=== PATIENT | female | born 1990 | race Caucasian/White ===

== ENCOUNTER → 2017-12-26 | Outpatient (CLI) | payer BC ==
--- NOTE | 2017-12-26 10:30 | US ---
EXAMINATION TYPE: US pelvic complete DATE OF EXAM: 12/26/2017 COMPARISON: NONE CLINICAL HISTORY: N94.10 Unspecified dyspareunia. RLQ pain for months, IUD in place for 1 year, A 1 TECHNIQUE: TA. Transabdominal sonographic images of the pelvis were acquired. Date of LMP: unknown, only spotting since IUD placement EXAM MEASUREMENTS: Uterus: 7.1 x 4.3 x 2.9 cm Endometrial Stripe: 0.4 cm Right Ovary: 9.8 x 5.6 x 6.1 cm Left Ovary: 2.1 x 2.3 x 0.9 cm 1. Uterus: Anteverted wnl 2. Endometrium: beginning and end tip of IUD seen within [facility] 3. Right Ovary: 8.4 x 5.5 x 4.9 cm simple appearing cyst 4. Left Ovary: wnl 5. Bilateral Adnexa: wnl 6. Posterior cul-de-sac: wnl IMPRESSION: 1. IUD is within the uterus. 2. Large simple appearing 8.4 cm cyst on the right ovary. Follow-up is recommended.
== END | disposition home or self-care (01) ==
LOC: RADUSWWP 07:33
PROVIDERS: ATTEND Nurse Practitioner
DX: N94.10 Unspecified dyspareunia (principal); Z97.5 Presence of (intrauterine) contraceptive device
CPT/HCPCS: 76856

== ENCOUNTER → 2018-01-08 | Outpatient (CLI) | payer BC ==
[2018-01-08 15:10] LABS: Basophils % (A) 0 %; Eosinophils # (A) 0.2 k/uL (0-0.7); Eosinophils % (A) 2 %; HCT 43.3 % (34.0-46.0); HGB 14.2 gm/dL (11.4-16.0); Lymphocytes # (A) 2.3 k/uL (1.0-4.8); Lymphocytes % (A) 28 %; MCH 27.8 pg (25.0-35.0); MCHC 32.8 g/dL (31.0-37.0); MCV 84.7 fL (80.0-100.0); Mean Platelet Volume 7.6; Monocytes # (A) 0.6 k/uL (0-1.0); Monocytes % (A) 7 %; Neutrophils % (A) 61 %; Platelet Count 269 k/uL (150-450); RBC 5.11 m/uL (3.80-5.40); RDW 12.8 % (11.5-15.5); WBC 8.3 k/uL (3.8-10.6)
== END | disposition home or self-care (01) ==
LOC: LABPAT 14:41
PROVIDERS: ATTEND Obstetrics & Gynecology Obstetrics
DX: Z01.812 Encounter for preprocedural laboratory examination (principal); N83.201 Unspecified ovarian cyst, right side
CPT/HCPCS: 36415; 85025

== ENCOUNTER 2018-01-21 09:33 | Day surgery (SDC) | payer BC ==
[2018-01-15 12:13] VITALS: BMI 31.6
[~2018-01-21 09:33] MED LIST: ACETAMINOPHEN IV (For NPO) 1,000 MG in EMPTY BAG 1 BAG IVPB ONE; DEXAMETHASONE SOD PHOSPHATE 10 MG/ML 1 ML VIAL IV ONE; LACTATED RINGERS 1,000 ML IV SCH; LIDOCAINE 1% 20 ML VIAL (10MG/ML) FOR IV START INTRADERMA PRN; MORPHINE SULFATE 2 MG/ML SYRINGE IV PRN; ONDANSETRON 4 MG/2 ML VIAL IVP ONE; Pre Op ABX Message 1 EACH MISC MISCELLANE ONE; SCOPOLAMINE 1.5MG/72HR PATCH TRANSDERM ONE
[2018-01-21] MEDS ORDERED: MIDAZOLAM 2 MG/2 ML VIAL IV ONE (10:20)
[2018-01-21] MEDS ORDERED: ROCURONIUM BROMIDE 10 MG/ML 10 ML VIAL IV ONE (11:34)
[2018-01-21] MEDS ORDERED: MIDAZOLAM 2 MG/2 ML VIAL ONE (11:34)
[2018-01-21] MEDS ORDERED: SUCCINYLCHOLINE CHLORIDE 100 MG/5 ML SYR IV ONE (11:34)
[2018-01-21] MEDS ORDERED: NEOSTIGMINE 1 MG/ML 10 ML VIAL ONE (11:34)
[2018-01-21] MEDS ORDERED: PROPOFOL 10 MG/ML 20 ML VIAL IV ONE (11:34)
[2018-01-21] MEDS ORDERED: GLYCOPYRROLATE 0.2 MG/ML 2 ML VIAL ONE (11:34)
[2018-01-21] MEDS ORDERED: LIDOCAINE 1% INJ 10MG/ML (20 ML MDV) ONE (11:34)
[2018-01-21] MEDS ORDERED: fentaNYL (PF) 50 MCG/ML 2 ML AMP ONE (11:34)
[2018-01-21] MEDS ORDERED: LIDOCAINE 1% (PF) 10MG/ML VIAL SQ ONE (11:50)
--- NOTE | 2018-01-21 12:33 | P.OP ---
Date of Procedure: 01/21/18 Preoperative Diagnosis: Large right ovarian cyst, pelvic pain Postoperative Diagnosis: Same plus endometriosis Procedure(s) Performed: Operative laparoscopy with drainage of right ovarian cyst Anesthesia: LEYLA Surgeon: Tiarra Orellana Thiokol Operator #1: Shauna Crane Estimated Blood Loss (ml): 10 IV fluids (ml): 600 Urine output (ml): 100 Pathology: other (Cyst fluid) Condition: stable Disposition: PACU Indications for Procedure: Enlarged right ovarian cyst simple in appearance, pelvic pain Operative Findings: Large simple appearing right ovarian cyst and normal left ovary and normal- appearing uterus, normal upper abdomen Description of Procedure: Patient was seen in the preoperative suite and risks were reviewed in detail including but not limited to infection, bleeding, damage to bladder, bowel, ureteric injury. Questions were answered patient stated understanding and informed consent was obtained. Next Patient was taken operating suite where general anesthesia was obtained without difficulty by the anesthesia department. She was prepped and draped in normal sterile fashion in the dorsal lithotomy position Walcott catheter was then used to drain the bladder of 100 mL of clear yellow urine. A speculum was then placed the anterior lip of the cervix is visualized and an acorn uterine made there was placed. Attention is then turned to the patient's abdomen where in the umbilical fold a small skin incision was made through this incision appears needles placed once the Veress needle was deemed to be in the proper position with a drop in CO2 pressure with insufflation of CO2 gas CO2 insufflation was allowed to occur 3 L of gas were used to obtain pneumoperitoneum. At this point a 5 mm trocar and sleeve with the laparoscope and placed was placed through the skin incision toward the pneumoperitoneum. The above noted findings were visualized. In the right lower quadrant 5 mm trocar and sleeve is placed under direct visualization. A small incision was made into the right ovarian cyst which appeared simple in nature and the cyst fluid was aspirated. At this point monopolar scissors was placed into the abdomen and the incision was extended to drain the fluid. The suction trolley car mechanic was then used to drain the rest of the pelvis was then copiously irrigated. All instruments removed from the patient's abdomen next Patient tolerated procedure well counts were correct 2 patient was taken to the recovery room awake and in stable condition
[2018-01-21 12:52] VITALS: TEMP 98.1
[2018-01-21] MEDS ORDERED: KETOROLAC 30 MG/ML 1 ML VIAL IVP ONE (13:03)
[2018-01-21] MEDS ORDERED: HYDROmorphone 1 MG/ML 1 ML SYRINGE IVP ONE (13:19)
[2018-01-21 13:45] VITALS: RESP 16
[2018-01-21] MEDS ORDERED: LACTATED RINGERS 1,000 ML IV ONE (14:39)
[2018-01-21] MEDS ORDERED: Acetaminophen-Codeine 300-30mg TAB PO ONE (15:13)
[2018-01-21 15:24] VITALS: BP 107/73; PULSE 61
== END 2018-01-21 16:01 | disposition home or self-care (01) ==
LOC: OR 09:33
PROVIDERS: ATTEND Obstetrics & Gynecology Obstetrics
DX: N83.291 Other ovarian cyst, right side (principal); N80.1 Endometriosis of ovary; Z97.5 Presence of (intrauterine) contraceptive device; K21.9 Gastro-esophageal reflux disease without esophagitis
CPT/HCPCS: 81025; 88305; 88173; 49322; J2250; J1100; J2710; J2405; J2001; J3010; J1885; J1170; J0131; J0330; J2704

== ENCOUNTER → 2020-08-26 | Outpatient (CLI) | payer BC ==
[2020-08-26 11:30] LABS: HCT 36.9 % (34.0-46.0); HGB 12.7 gm/dL (11.4-16.0); MCH 30.6 pg (25.0-35.0); MCHC 34.3 g/dL (31.0-37.0); MCV 89.3 fL (80.0-100.0); Mean Platelet Volume 7.7; Platelet Count 194 k/uL (150-450); RBC 4.14 m/uL (3.80-5.40); RDW 12.9 % (11.5-15.5)
== END | disposition home or self-care (01) ==
LOC: LABWHC1 10:59
PROVIDERS: ATTEND Obstetrics & Gynecology Obstetrics
DX: Z36.9 Encounter for antenatal screening, unspecified (principal); Z3A.00 Weeks of gestation of pregnancy not specified
CPT/HCPCS: 36415; 82950; 85027

== ENCOUNTER 2020-11-17 09:59 | Inpatient (IN) | payer BC ==
[2020-11-17] MEDS: LACTATED RINGERS 1,000 ML IV SCH ×2 (10:30→16:54)
[2020-11-17] MEDS ORDERED: CITRIC ACID-SODIUM CITRATE 15 ML CUP PO ONE (12:13)
[2020-11-17 12:29] LABS: Basophils % (A) 0 %; Eosinophils % (A) 0 %; HCT 35.3 % (34.0-46.0); HGB 12.4 gm/dL (11.4-16.0); Lymphocytes # (A) 1.7 k/uL (1.0-4.8); Lymphocytes % (A) 17 %; MCH 29.3 pg (25.0-35.0); MCV 83.8 fL (80.0-100.0); Mean Platelet Volume 9.3; Monocytes # (A) 0.5 k/uL (0-1.0); Monocytes % (A) 5 %; Neutrophils # (A) 7.6 k/uL (1.3-7.7); Neutrophils % (A) 76 %; Platelet Count 200 k/uL (150-450); RBC 4.21 m/uL (3.80-5.40); RDW 13.3 % (11.5-15.5)
--- NOTE | 2020-11-17 12:53 | P.HPOB ---
History of Present Illness H&P Date: 11/17/20 Chief Complaint: Term , suspected LGA This is a 30-year-old at 40 0/7 weeks that presents to labor and delivery with known LGA baby. Patient had been receiving routine care with myself, which has been essentially uncomplicated. Patient was noted to be measuring greater than gestational age, and ultrasound was performed. was noted to be 9 lbs. 6 oz. with a significantly increased abdominal circumference greater than the 99th percentile. Patient was counseled on the office on induction of labor secondary to size versus primary given abdominal circumference greater than the 99th percentile and estimated weight of 9 lbs. 6 oz. or 4200 g. Patient elected primary . Patient has been noting good movement and denied contractions vaginal bleeding or loss of fluid. bloodwork patient a blood type of B+, rubella status immune, B surface antigen negative, HIV negative, group beta strep negative, RPR nonreactive. She did pass her 1 hour gestational diabetes screen. 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) History of Any Multi-Drug Resistant Organisms: None Reported Additional Past Surgical History / Comment(s): Benign tumor on shoulder removed, ovarian cyst drained (LAP) Past Anesthesia/Blood Transfusion Reactions: No Reported Reaction Past Psychological History: Anxiety, Depression Smoking Status: Never smoker Past Alcohol Use History: None Reported, Occasional Past Drug Use History: None Reported - Past Family History Mother Family Medical History: Coronary Artery Disease (CAD), Hypertension Father Family Medical History: Coronary Artery Disease (CAD), Hypertension Medications and Allergies Home Medications Medication Instructions Recorded Confirmed Type Pnv,Calcium 72/Iron/Folic Acid 1 tab PO DAILY MDD 1 tab 11/17/20 11/17/20 History [ Plus Tablet] Allergies Allergy/AdvReac Type Severity Reaction Status Date / Time No Known Allergies Allergy Verified 01/21/18 10:08 Exam Osteopathic Statement: *. No significant issues noted on an osteopathic structural exam other than those noted in the History and Physical/Consult. Vital Signs Temp Pulse Resp BP Pulse Ox 11/17/20 10:30 96.4 F L 88 18 119/77 97 Intake and Output 11/16/20 11/17/20 11/17/20 22:59 06:59 14:59 Other: Weight 97.522 kg Targeted physical exam is performed in this date and audio/visual manager a well-nourished well-developed female in no acute distress, breathing is nonlabored, heart has a regular rate and rhythm, abdomen is gravid and large for gestational age, cervical exam is deferred as she was checked yesterday in the office and noted to be 1 cm. heart tones are noted to be category 1. Results Result Diagrams: 11/17/20 10:30 Assessment and Plan (1) Term Current Visit: Yes Status: Acute Code(s): Z34.90 - ENCNTR FOR SUPRVSN OF NORMAL , UNSP, UNSP TRIMESTER SNOMED Code(s): 91268107 (2) LGA (large for gestational age) fetus Current Visit: Yes Status: Acute Code(s): MRJ4974 - SNOMED Code(s): 886021906 Plan: This 30-year-old 1 para 0 at term gestation presents for primary C- section secondary to large for gestational age, suspected macrosomia. Patient had an ultrasound revealing a 9 lbs. 6 oz. or 4200 g infant. Patient was counseled on induction of labor with Cervidil given her unfavorable cervix versus primary given infant's weight and abdominal circumference greater than the 99th percentile. Patient elected primary . Patient was counseled on ultrasound inaccuracy in addition. All questions were answered to patient's satisfaction. Patient or for planned primary
[2020-11-17] MEDS ORDERED: OXYTOCIN 10 UNIT/ML 1 ML VIAL ONE (13:19)
[2020-11-17] MEDS ORDERED: ONDANSETRON 4 MG/2 ML VIAL ONE (13:19)
[2020-11-17] MEDS ORDERED: PHENYLEPHRINE-0.9% NACL SYG 1,000 MCG/10 ML SYRINGE ONE (13:19)
[2020-11-17] MEDS ORDERED: MORPHINE SULFATE (PF) 0.3 MG/0.3 ML SYR ONE (13:19)
--- NOTE | 2020-11-17 14:27 | P.OP ---
Date of Procedure: 11/17/20 Preoperative Diagnosis: IUP @ 40 0/7 weeks, suspected LGA 4200gms. on US Postoperative Diagnosis: Same Procedure(s) Performed: Primary low transverse section Anesthesia: spinal Surgeon: Tiarra Orellana Inspector Shells #1: Evan Aceves Estimated Blood Loss (ml): 885 IV fluids (ml): 1,000 Urine output (ml): 800 Pathology: none sent Condition: stable Disposition: observation Indications for Procedure: 30-year-old at 40-0/7 weeks that had an ultrasound in the office yesterday revealing a large for gestational age infant 9 lbs. 6 oz., 4200 g. Patient was counseled on options of induction of labor versus section. Patient elected section given size. Operative Findings: Normal uterus tubes and ovaries were appreciated, viable male delivered at 1347, weight of 7 lbs. 15 oz. and Apgars of 99 at one and 5 minutes respectively. Description of Procedure: Patient was taken back to the operating suite where spinal anesthesia was found be adequate by the anesthesia department. She was prepped and draped in the normal sterile fashion in the dorsal supine position. A Pfannenstiel skin incision was made the scalpel and carried through the underlying layer of fascia. Fascia was then incised in the midline and the incision was extended laterally. The superior aspect of the fascial incision was then grasped with Kellie clamps, elevated and underlying rectus muscle was dissected off sharply. Attention was then turned to the inferior aspect of the fascial incision which was grasped kellie clamps, elevated and underlying rectus muscles dissected off sharply once again. The rectus muscles were then in the midline the peritoneum was identified and entered. The bladder blade was then inserted into the pelvis. The scleral peritoneum was identified and the bladder flap was then created using sharp and blunt dissection. Hysterotomy incision was made with the scalpel the was encountered in an occiput transverse presentation to the maternal left amniotomy was performed clear fluid was obtained the infant was delivered in a vertex presentation the usual fashion. The umbilical cords d oubly clamped and cut and the placenta was delivered manually intact with three- vessel cord being noted. The uterus was then delivered from the abdomen and cleared of all clots and debris. The uterine incision once then closed with 0 Vicryl in a running locked fashion from one lateral edge the other. A second imbricating suture was performed. Bleeding was noted on the right-hand side of the uterine incision therefore a idlydj-ev-kaikf suture was used for hemostasis. The pelvis was then copiously irrigated and the uterus was returned to the abdomen. The gutters were cleared of all clots and debris. The hysterotomy incision was noted to have bleeding in the midportion of the uterine incision therefore a afnpgy-gx-srxni suture was used to obtain hemostasis. Hemostasis was appreciated after the suture was placed. The gutters were cleared of all clots and debris. The atony was then loosely reapproximated. The rectus muscles were then inspected and found to be hemostatic. The fascia was then closed with 0 Vicryl in a running fashion from one lateral edge the other. The subcutaneous tissue was then irrigated. The subcutaneous tissue was noted to be hemostatic. The subcutaneous tissues then closed with 3-0 Vicryl in a running fashion. The skin was then closed with 4-0 Vicryl in a subarticular fashion. Steri-Strips and sterile dressing were applied. All counts are noted to be correct 2 at the end of procedure patient tolerated procedure well and was taken the recovery room awake in stable condition.
[2020-11-17] MEDS ORDERED: ONDANSETRON 4 MG/2 ML VIAL IVP PRN (15:06)
[2020-11-17] MEDS ORDERED: METOCLOPRAMIDE 5 MG/ML 2 ML VIAL IVP PRN (15:06)
[2020-11-17] MEDS ORDERED: diphenhydrAMINE 50 MG CAP PO PRN (15:06)
[2020-11-17] MEDS ORDERED: ZOLPIDEM 5 MG TAB PO PRN (15:06)
[2020-11-17] MEDS ORDERED: SIMETHICONE 80 MG CHEWABLE PO PRN (15:06)
[2020-11-17] MEDS ORDERED: OXYTOCIN 30 UNITS/500 ML NS 30 UNIT in SALINE 1 500ML.BAG IV SCH (15:06)
[2020-11-17] MEDS ORDERED: diphenhydrAMINE 25 MG CAP PO PRN (15:06)
[2020-11-17] MEDS ORDERED: diphenhydrAMINE 50 MG/ML 1 ML VIAL IVP PRN ×2 (15:06)
[2020-11-17] MEDS ORDERED: NALOXONE 0.4 MG/ML 1 ML VIAL IV PRN (15:06)
[2020-11-17] MEDS ORDERED: ACETAMINOPHEN IV (For NPO) 1,000 MG in EMPTY BAG 1 BAG IVPB PRN (18:00)
[2020-11-17] MEDS: ACETAMINOPHEN TAB 500 MG TAB PO SCH (18:03)
[2020-11-17] MEDS ORDERED: IBUPROFEN IV 800 MG in SODIUM CHLORIDE 0.9% 250 ML IV PRN (21:00)
[2020-11-17] MEDS: IBUPROFEN 600 MG TAB PO SCH (21:03)
[2020-11-18] MEDS: SENNOSIDES-DOCUSATE SODIUM 1 EACH TAB PO SCH ×3 (00:19→19:39)
[2020-11-18] MEDS: LACTATED RINGERS 1,000 ML IV SCH ×2 (00:19→05:10)
[2020-11-18] MEDS: ACETAMINOPHEN TAB 500 MG TAB PO SCH ×5 (01:37→22:33)
[2020-11-18] MEDS: IBUPROFEN 600 MG TAB PO SCH ×4 (05:10→18:49)
[2020-11-18 07:11] LABS: Basophils % (A) 0 %; Eosinophils % (A) 0 %; HCT 31.7 % (34.0-46.0); HGB 10.2 gm/dL (11.4-16.0); Lymphocytes # (A) 1.5 k/uL (1.0-4.8); Lymphocytes % (A) 13 %; MCH 27.8 pg (25.0-35.0); MCHC 32.3 g/dL (31.0-37.0); MCV 86.2 fL (80.0-100.0); Monocytes # (A) 0.5 k/uL (0-1.0); Monocytes % (A) 5 %; Neutrophils # (A) 8.8 k/uL (1.3-7.7); Neutrophils % (A) 80 %; Platelet Count 171 k/uL (150-450); RBC 3.68 m/uL (3.80-5.40); RDW 13.9 % (11.5-15.5); WBC 11.1 k/uL (3.8-10.6)
--- NOTE | 2020-11-18 08:38 | P.PNOBGPC ---
Subjective - Subjective Principal diagnosis: POD 1 LTCS Interval history: Patient is doing well. She is ambulating without difficulty. Awaiting spontaneous void. Pain is well-controlled. She is tolerating clear liquids, without nausea or vomiting. Patient reports: Reports appetite normal, Reports voiding normally, Reports pain well controlled, Reports ambulating normally : doing well, nursing well Objective - Vital Signs Latest vital signs: Vital Signs Temp Pulse Resp BP Pulse Ox 11/18/20 04:00 98.1 F 69 16 113/75 100 11/18/20 00:00 98.1 F 84 18 105/61 97 11/17/20 20:00 97.5 F L 75 18 122/71 11/17/20 16:30 58 L 18 112/64 100 11/17/20 16:00 71 18 115/60 99 11/17/20 15:20 74 18 97 11/17/20 15:05 73 18 103/59 97 11/17/20 14:50 87 18 98 11/17/20 14:35 77 18 99 11/17/20 14:20 96.7 F L 67 16 108/59 99 11/17/20 10:30 96.4 F L 88 18 119/77 97 Intake and Output 11/17/20 11/18/20 11/18/20 22:59 06:59 14:59 Output Total 1000 850 Balance -1000 -850 Output: Urine 1000 850 Uretheral (Pat) 1000 Other: # Voids 0 - Exam Extremities: Present: normal, edema Abdomen: Present: normal appearance Incision: Present: normal, dry, intact Uterus: Present: normal, firm - Labs Labs: Abnormal Lab Results - Last 24 Hours (Table) 11/18/20 Range/Units 06:54 WBC 11.1 H (3.8-10.6) k/uL RBC 3.68 L (3.80-5.40) m/uL Hgb 10.2 L (11.4-16.0) gm/dL Hct 31.7 L (34.0-46.0) % Neutrophils # 8.8 H (1.3-7.7) k/uL Assessment and Plan (1) Term Current Visit: Yes Status: Acute Code(s): Z34.90 - ENCNTR FOR SUPRVSN OF NORMAL , UNSP, UNSP TRIMESTER SNOMED Code(s): 08998000 (2) LGA (large for gestational age) fetus Current Visit: Yes Status: Acute Code(s): TZJ9206 - SNOMED Code(s): 560309871 (3) S/P section Current Visit: Yes Status: Acute Code(s): Z98.891 - HISTORY OF UTERINE SCAR FROM PREVIOUS SURGERY SNOMED Code(s): 242531337 Plan: Patient is doing well postoperatively. We will advance diet to regular, encourage increased ambulation. Continue routine postoperative care.
--- NOTE | 2020-11-18 08:41 | P.PN ---
Progress Note - Text Date: 11/18/2020 Time: 07:10 The patient is status post section Vital signs stable VAS: 0-10 Patient has no complaints of pain. The patient incurred some minimal itching yesterday, this itching is now subsiding. Pain meds to be managed by service.
[2020-11-19] MEDS: IBUPROFEN 600 MG TAB PO SCH ×3 (00:50→14:05)
[2020-11-19] MEDS: ACETAMINOPHEN TAB 500 MG TAB PO SCH ×3 (01:42→10:55)
--- NOTE | 2020-11-19 08:58 | P.DS ---
Providers Date of admission: 11/17/20 09:59 Expected date of discharge: 11/19/20 Attending physician: Tiarra Orellana Primary care physician: Stated None - Discharge Diagnosis(es) (1) Term Current Visit: Yes Status: Acute (2) LGA (large for gestational age) fetus Current Visit: Yes Status: Acute (3) S/P section Current Visit: Yes Status: Acute Hospital Course: This is a 1 para 0 that presented at 40-0/7 weeks for scheduled primary secondary to suspected large for gestational age. Patient had been receiving routine care which has been essentially uncomplicated. Rosalinda mccormack was counseled given ultrasound findings of induction of labor versus primary . Patient opted for primary . was completed without difficulty a viable male infant was delivered at 1347 on 11/17, weight of 7 lbs. 15 oz., Apgars of 9 and 9 at one and 5 minutes respect daily. For further details on the please see the operative report. Patient's postoperative course is been essentially uneventful. She is ambulating and voiding without difficulty on this postoperative day #2. She is tolerating a regular diet without nausea or vomiting. Her lochia is minimal. Her pain is well-controlled with oral ibuprofen/Tylenol. Patient is struggling somewhat with breast-feeding and is supplementing with formula. Patient Condition at Discharge: Good Plan - Discharge Summary New Discharge Prescriptions: No Action Pnv,Calcium 72/Iron/Folic Acid [ Plus Tablet] 1 tab PO DAILY MDD 1 tab Discharge Medication List Pnv,Calcium 72/Iron/Folic Acid [ Plus Tablet] 1 tab PO DAILY MDD 1 tab 11/17/20 [History] Follow up Appointment(s)/Referral(s): Tiarra Orellana DO [Doctor of Osteopathic Medicine] - 2 Weeks Patient Instructions/Handouts: (DC), (GEN) Discharge Disposition: HOME SELF-CARE
[2020-11-19 16:22] VITALS: BP 123/74; PULSE 94; RESP 16; TEMP 98.3
== END 2020-11-19 17:20 | disposition home or self-care (01) | DRG 788 ==
LOC: 4FBP 09:59
PROVIDERS: ADMIT Obstetrics & Gynecology Obstetrics; ATTEND Obstetrics & Gynecology Obstetrics
PROC: 10D00Z1 Extraction of Products of Conception, Low, Open Approach (ICD-10-PCS; principal; 2020-11-17 13:20)
DX: O36.63X0 Maternal care for excessive fetal growth, third trimester, not applicable or unspecified (principal); F32.9 Major depressive disorder, single episode, unspecified; F41.9 Anxiety disorder, unspecified; O99.344 Other mental disorders complicating childbirth; Z37.0 Single live birth; Z3A.40 40 weeks gestation of pregnancy; Z82.49 Family history of ischemic heart disease and other diseases of the circulatory system
CPT/HCPCS: 85025; 86850; 86900; 86901

== ENCOUNTER → 2023-03-22 | Outpatient (CLI) | payer BC ==
--- NOTE | 2023-03-22 14:00 | MR ---
EXAMINATION TYPE: MR knee LT wo con DATE OF EXAM: 03/22/2023 COMPARISON: None HISTORY: Medial Pain and swelling in left knee TECHNIQUE: Multiplanar, multisequence imaging of the left knee is performed without IV contrast. FINDINGS: MEDIAL MENISCUS: Anterior and posterior horns are intact without tear. LATERAL MENISCUS: Anterior and posterior horns are intact without tear. CRUCIATE LIGAMENTS: The anterior and posterior cruciate ligaments are intact and unremarkable. COLLATERAL LIGAMENTS: The medial collateral ligament and lateral collateral ligament complex are inta ct and unremarkable. EXTENSOR MECHANISM: Visualized quadriceps and patellar tendons are intact. EFFUSION: No significant suprapatellar joint effusion. POPLITEAL CYST: No popliteal/florez cyst. TRICOMPARTMENT SPACES: Intact CARTILAGE: Intact BONE MARROW SIGNAL: No focal abnormal marrow signal is appreciated. OTHER: No additional significant abnormality is appreciated. IMPRESSION: No significant abnormality identified at this time.
== END | disposition home or self-care (01) ==
LOC: RADMRIMAIN 12:06
PROVIDERS: ATTEND Family Medicine
DX: M25.562 Pain in left knee (principal); M79.89 Other specified soft tissue disorders

== ENCOUNTER → 2023-09-20 | Outpatient (CLI) | payer BC ==
[2023-09-20 18:51] LABS: HCT 39.3 % (37.2-46.3); HGB 12.8 g/dL (12.0-15.0); MCH 27.6 pg (27.0-32.0); MCHC 32.6 g/dL (32.0-37.0); MCV 84.9 FL (80.0-97.0); Mean Platelet Volume 10.8 FL (9.5-12.2); NRBC Per 100 WBC 0 X 10*3/uL (0.00-0.01); Platelet Count 269 X 10*3/uL (140-440); RBC 4.63 X 10*6/uL (4.10-5.20); RDW 13.2 % (11.5-14.5); WBC 9.83 X 10*3/uL (4.50-10.00)
[2023-09-20 21:21] LABS: Hepatitis B Surface Antigen Nonreactive
[2023-09-20 22:26] LABS: HIV 2 AB Non-Reactive (Non-Reactive); HIV AB P24 Non-Reactive (Non-Reactive); HIV P24 AG Non-Reactive (Non-Reactive)
== END | disposition home or self-care (01) ==
LOC: LABWHC1 13:48
PROVIDERS: ATTEND Obstetrics & Gynecology Obstetrics
DX: O99.210 Obesity complicating pregnancy, unspecified trimester (principal); Z3A.00 Weeks of gestation of pregnancy not specified
CPT/HCPCS: 36415; 82950; 83036; 85027; 86762; 86780; 86850; 86900; 86901; 87340; 87390

== ENCOUNTER → 2024-01-03 | Outpatient (CLI) | payer BC ==
[2024-01-03 19:44] LABS: HCT 31.5 % (37.2-46.3); HGB 10.7 g/dL (12.0-15.0); MCV 88.2 FL (80.0-97.0); NRBC Per 100 WBC 0 X 10*3/uL (0.00-0.01); Platelet Count 348 X 10*3/uL (140-440); RBC 3.57 X 10*6/uL (4.10-5.20); RDW 13.1 % (11.5-14.5); WBC 11.35 X 10*3/uL (4.50-10.00)
== END | disposition home or self-care (01) ==
LOC: LABWHC1 15:10
PROVIDERS: ATTEND Obstetrics & Gynecology Obstetrics
DX: Z36.9 Encounter for antenatal screening, unspecified (principal)
CPT/HCPCS: 36415; 82950; 85027

== ENCOUNTER → 2024-01-16 | Outpatient (CLI) | payer BC ==
[2024-01-16 16:44] LABS: Glucose 3 Hour, Gest 50 mg/dL
== END | disposition home or self-care (01) ==
LOC: LABWHC1 10:05
PROVIDERS: ATTEND Obstetrics & Gynecology Obstetrics
DX: O99.810 Abnormal glucose complicating pregnancy (principal); Z3A.00 Weeks of gestation of pregnancy not specified
CPT/HCPCS: 36415; 82951; 82952

== ENCOUNTER → 2024-03-06 | Outpatient (CLI) | payer BC | END | disposition home or self-care (01) | LOC: LABPRL 09:30 | PROVIDERS: ATTEND Obstetrics & Gynecology Obstetrics | DX: Z36.85 Encounter for antenatal screening for Streptococcus B (principal) | CPT/HCPCS: 87081 ==

== ENCOUNTER 2024-04-11 09:56 | Inpatient (IN) | payer BC ==
[2024-04-11] MEDS ORDERED: miSOPROStoL 200 MCG TAB PO PRN (10:36)
[2024-04-11] MEDS ORDERED: TRANEXAMIC 1,000 MG/100ML-NACL 1,000 MG in EMPTY BAG 1 BAG IV PRN (10:36)
[2024-04-11] MEDS ORDERED: CARBOPROST TROMETHAMINE 250 MCG/ML 1 ML AMP IM PRN (10:36)
[2024-04-11] MEDS ORDERED: OXYTOCIN 10 UNIT/ML 1 ML VIAL IM PRN (10:36)
[2024-04-11] MEDS ORDERED: METHYLERGONOVINE 0.2 MG/ML 1 ML AMP IM PRN (10:36)
[2024-04-11] MEDS: LACTATED RINGERS 1,000 ML IV ONE (10:53)
[2024-04-11 10:57] LABS: Basophils % (A) 0 %; Eosinophils % (A) 0 %; HCT 31.5 % (34.0-46.0); HGB 10.2 gm/dL (11.4-16.0); Hypochromasia Slight; Lymphocytes # (A) 1.7 k/uL (1.0-4.8); Lymphocytes % (A) 21 %; MCH 26.9 pg (25.0-35.0); MCHC 32.3 g/dL (31.0-37.0); MCV 83.2 fL (80.0-100.0); Mean Platelet Volume 8.2; Monocytes # (A) 0.3 k/uL (0-1.0); Monocytes % (A) 4 %; Neutrophils # (A) 6.1 k/uL (1.3-7.7); Neutrophils % (A) 72 %; Platelet Count 225 k/uL (150-450); RBC 3.78 m/uL (3.80-5.40); RDW 14.6 % (11.5-15.5); WBC 8.4 k/uL (3.8-10.6)
[2024-04-11] MEDS: CITRIC ACID-SODIUM CITRATE 15 ML CUP PO ONE (11:22)
[2024-04-11] MEDS ORDERED: ePHEDrine 50 MG/ML 1 ML VIAL ONE (11:45)
[2024-04-11] MEDS ORDERED: ONDANSETRON 4 MG/2 ML VIAL ONE (11:45)
[2024-04-11] MEDS ORDERED: NALBUPHINE 10 MG/ML (10 ML MDV) ONE (11:45)
[2024-04-11] MEDS ORDERED: OXYTOCIN 30 UNITS/500 ML NS BAG IV ONE (11:45)
[2024-04-11] MEDS ORDERED: MORPHINE SULFATE (PF) 0.3 MG/0.3 ML SYR ONE (11:45)
[2024-04-11] MEDS ORDERED: MORPHINE SULFATE 2 MG/ML SYRINGE IVP PRN (12:37)
[2024-04-11] MEDS ORDERED: METOCLOPRAMIDE 5 MG/ML 2 ML VIAL IVP PRN ×2 (12:37→12:39)
[2024-04-11] MEDS ORDERED: NALOXONE 0.4 MG/ML 1 ML VIAL IV PRN ×2 (12:37→12:39)
[2024-04-11] MEDS ORDERED: diphenhydrAMINE 50 MG/ML 1 ML VIAL IVP PRN ×3 (12:37→12:39)
[2024-04-11] MEDS ORDERED: ONDANSETRON 4 MG/2 ML VIAL IVP PRN ×2 (12:37→12:39)
[2024-04-11] MEDS ORDERED: NALBUPHINE 10 MG/ML (10 ML MDV) IV PRN (12:37)
[2024-04-11] MEDS ORDERED: KETOROLAC 15 MG/ML 1 ML VIAL IVP PRN (12:37)
[2024-04-11] MEDS ORDERED: SIMETHICONE 80 MG CHEWABLE PO PRN (12:39)
[2024-04-11] MEDS ORDERED: ZOLPIDEM 5 MG TAB PO PRN (12:39)
[2024-04-11] MEDS ORDERED: diphenhydrAMINE 25 MG CAP PO PRN (12:39)
[2024-04-11] MEDS ORDERED: diphenhydrAMINE 50 MG CAP PO PRN (12:39)
[2024-04-11] MEDS ORDERED: OXYTOCIN 30 UNITS/500 ML NS 30 UNIT in SALINE 1 500ML.BAG IV SCH (12:45)
--- NOTE | 2024-04-11 13:02 | P.HPOB ---
History of Present Illness H&P Date: 04/11/24 Chief Complaint: IUP at 40-6/7 weeks, history of x 1 34-year-old at 40-6/7 weeks that presents to labor and delivery for repeat section. Patient had a prior section for suspected LGA. Patient was desirous of trial of labor but her cervix at this time is fingertip thick and with a high station. Patient is requesting repeat section. Patient has been receiving routine care which has been essentially uncomplicated. blood work this patient is a blood type of B+, rubella status immune, hepatitis B surface engine negative, HIV negative, RPR nonreactive, grew beta strep culture is negative. Review of Systems Constitutional: Denies chills, Denies fatigue, Denies fever Ears, nose, mouth and throat: Denies headache Cardiovascular: Reports leg edema Respiratory: Denies dyspnea Gastrointestinal: Denies constipation, Denies diarrhea, Denies nausea, Denies vomiting Genitourinary: Reports Past Medical History Past Medical History: No Reported History Additional Past Medical History / Comment(s): Rt. 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) History of Any Multi-Drug Resistant Organisms: None Reported Past Surgical History: Section Additional Past Surgical History / Comment(s): Benign tumor on shoulder removed, ovarian cyst drained (LAP) Past Anesthesia/Blood Transfusion Reactions: Postoperative Nausea & Vomiting (PONV) Additional Past Anesthesia/Blood Transfusion Reaction / Comment(s): c/o hives/itchy after Past Psychological History: Anxiety, Depression Smoking Status: Never smoker Past Alcohol Use History: None Reported Past Drug Use History: None Reported - Past Family History Mother Family Medical History: Coronary Artery Disease (CAD), Hypertension Father Family Medical History: Coronary Artery Disease (CAD), Hypertension Medications and Allergies Home Medications Medication Instructions Recorded Confirmed Type Vit No.180/Iron/Folic 1 tab PO DAILY MDD 1 tab 11/17/20 04/11/24 Histo ry [ Plus Tablet] Escitalopram [Lexapro] 10 mg PO HS 04/10/24 04/11/24 History Magnesium Glycinate 100 mg PO DAILY 04/10/24 04/11/24 History Allergies Allergy/AdvReac Type Severity Reaction Status Date / Time No Known Allergies Allergy Verified 04/11/24 10:36 Exam Osteopathic Statement: *. No significant issues noted on an osteopathic structural exam other than those noted in the History and Physical/Consult. Vital Signs Temp Pulse Resp BP Pulse Ox 04/11/24 10:39 96.9 F L 90 18 116/67 99 Intake and Output 04/10/24 04/11/24 04/11/24 22:59 06:59 14:59 Other: Weight 102.058 kg Targeted physical exam is performed on this date in general is a well-nourished well-developed female in no acute distress, breathing is nonlabored, heart has a regular rate and rhythm, abdomen is gravid, cervical exam is defe rred, heart tones are noted to be category 1 with irregular contractions. Results Result Diagrams: 04/11/24 10:30 Abnormal Lab Results - Last 24 Hours (Table) 04/11/24 Range/Units 10:30 RBC 3.78 L (3.80-5.40) m/uL Hgb 10.2 L (11.4-16.0) gm/dL Hct 31.5 L (34.0-46.0) % Assessment and Plan (1) Post-dates Current Visit: Yes Status: Acute Code(s): O48.0 - POST-TERM SNOMED Code(s): 64894556 (2) History of section Current Visit: Yes Status: Acute Code(s): Z98.891 - HISTORY OF UTERINE SCAR FROM PREVIOUS SURGERY SNOMED Code(s): 008455451 Plan: 34-year-old G2, P1 at 40-6/7 weeks presents for repeat section. Patient is counseled on procedure and questions are answered. Risks are reviewed including but not limited to infection, bleeding, damage to bladder, bowel, ureteric injury. Patient states understanding anesthesia and to see patient will proceed to operating room.
--- NOTE | 2024-04-11 13:05 | P.OP ---
Date of Procedure: 04/11/24 Preoperative Diagnosis: IUP at 40-6/7 weeks, history of x 1, desires repeat Postoperative Diagnosis: Same Procedure(s) Performed: Repeat section Anesthesia: spinal Surgeon: Tiarra Orellana Stock Feeder #1: Evan Aceves Estimated Blood Loss (ml): 959 IV fluids (ml): 900 Urine output (ml): 100 (Clear yellow) Pathology: none sent Condition: stable Disposition: observation Indications for Procedure: History of x 1 desires repeat Operative Findings: Viable male infant delivered at 1207, weight of 8 pounds 0 ounces, Apgars of 9 and 9 at 1 and 5 minutes respectively. Normal uterus tubes and ovaries were appreciated, very thin lower uterine segment was appreciated. Description of Procedure: The patient was prepped and draped in the usual fashion after spinal anesthesia was administered by the anesthesia department. A Pfannenstiel incision was made and extended of the abdominal cavity without difficulty. The bladder peritoneum was elevated and incised and reflected distally. A 2 cm incision was made in the transverse plane of the lower uterine segment to enter the uterus at which time clear fluid was noted. The incision was extended in both directions using the bandage scissors. The head was encountered within the field and delivered up and through the incision where the nose and mouth were thoroughly suctioned. Remainder of the infant was delivered onto the surgical field where the cord was doubly clamped, cut, and the infant was passed for resuscitative measures with weight and Apgars as noted above. A segment of cord was then doubly clamped, cut, and set aside should cord gases become necessary. The placenta was delivered manually, intact, and was grossly normal with a grossly normal three-vessel cord. The uterus was exteriorized and the interior cavity of the uterus swept of any remaining placental and membranous fragments with a laparotomy sponge. The margins of the incision were grasped with Allis clamps and the incision closed in 2 layers. First layer was a running locking layer of 0 Vicryl from margin to margin followed by a second layer of imbricating 0 Vicryl from margin to margin. Any small points of bleeding were then made hemostatic with the Bovie. Once hemostasis was achieved, the posterior cul-de-sac was suctioned with a guard and the uterine and ovarian findings are as noted above. The uterus was replaced within the abdominal cavity and the gutters swept of any remaining blood fluid or clot. The incision was again reexamined and hemostasis was noted to be excellent. Any small point of bleeding were made hemostatic with the Bovie. Once hemostasis was achieved the parietal peritoneum was loosely reapproximated. The layer of muscles were examined and made hemostatic with the Bovie. Attention was then turned to the fascia which was closed with 2 running stitches of 0 Vicryl proceeding from the lateral margin to the other. The subcutaneous tissues were irrigated, made hemostatic with the Bovie, and reapproximated with a running stitch of 30 Vicryl. The skin was reapproximated with 4-0 Vicryl. Estimated blood loss for the case was approximately 959 mL. All sponge instrument and needle counts are correct. There were no complications. The patient tolerated the procedure well and proceeded to the recovery room in stable condition. Both mother and infant are resting comfortably in recovery.
[2024-04-11] MEDS: ACETAMINOPHEN IV (For NPO) 1,000 MG in EMPTY BAG 1 BAG IVPB SCH (14:55)
[2024-04-11] MEDS: IBUPROFEN 600 MG TAB PO SCH (19:37)
[2024-04-11] MEDS: ACETAMINOPHEN TAB 500 MG TAB PO SCH (19:38)
[2024-04-11] MEDS: LACTATED RINGERS 1,000 ML IV SCH (20:23)
[2024-04-11] MEDS: IBUPROFEN IV 800 MG in SODIUM CHLORIDE 0.9% 250 ML IV SCH (20:23)
[2024-04-11] MEDS: ESCITALOPRAM 10 MG TAB PO SCH (20:23)
[2024-04-11] MEDS: SENNOSIDES-DOCUSATE SODIUM 1 EACH TAB PO SCH (20:23)
[2024-04-12 04:43] LABS: Basophils % (A) 0 %; Eosinophils % (A) 0 %; HCT 28.2 % (34.0-46.0); HGB 8.9 gm/dL (11.4-16.0); Hypochromasia Moderate; Lymphocytes % (A) 18 %; MCH 26.3 pg (25.0-35.0); MCHC 31.5 g/dL (31.0-37.0); MCV 83.4 fL (80.0-100.0); Mean Platelet Volume 8.3; Monocytes # (A) 0.7 k/uL (0-1.0); Monocytes % (A) 6 %; Neutrophils # (A) 8.5 k/uL (1.3-7.7); Neutrophils % (A) 74 %; Platelet Count 219 k/uL (150-450); RBC 3.38 m/uL (3.80-5.40); RDW 14.5 % (11.5-15.5); WBC 11.4 k/uL (3.8-10.6)
--- NOTE | 2024-04-12 09:10 | P.PN ---
Progress Note - Text Adequate analgesia from spinal Duramorph. No complications from spinal.
--- NOTE | 2024-04-12 10:01 | P.PNOBGPC ---
Subjective - Subjective Principal diagnosis: Postop day 1, repeat section Interval history: Patient is doing well postoperatively. She is ambulating and voiding without difficulty. Her lochia is minimal. She is breast-feeding without difficulty. She states her pain is well-controlled. She is tolerating a regular diet without nausea or vomiting. Patient reports: Reports appetite normal, Reports voiding normally, Reports pain well controlled, Reports ambulating normally : doing well, nursing well Objective - Vital Signs Latest vital signs: Vital Signs Temp Pulse Resp BP Pulse Ox 04/12/24 08:00 98.2 F 85 16 115/68 04/12/24 03:46 97.7 F 71 16 106/62 04/12/24 00:38 98.1 F 84 16 99/64 04/11/24 16:38 98.0 F 90 16 105/60 99 04/11/24 15:37 18 04/11/24 14:38 96 18 97/51 04/11/24 14:23 87 18 120/65 98 04/11/24 14:08 18 127/67 04/11/24 13:53 97.5 F L 92 18 124/68 100 04/11/24 13:38 88 18 119/63 98 04/11/24 13:37 16 99 04/11/24 13:23 98 18 131/56 98 04/11/24 13:08 91 18 132/64 98 04/11/24 12:53 95 18 131/65 97 04/11/24 12:38 97.7 F 87 18 120/68 99 04/11/24 12:37 18 98 04/11/24 10:39 96.9 F L 90 18 116/67 99 Intake and Output 04/11/24 04/12/24 04/12/24 22:59 06:59 14:59 Intake Total 500 Output Total 702 300 Balance -702 200 Intake: Oral 500 Output: Urine 500 300 Uretheral (Pat) 500 Output, Quantitative 202 Blood Loss Other: # Voids 1 2 - Exam Extremities: Present: normal, edema Abdomen: Present: normal appearance, soft Incision: Present: normal, dry Uterus: Present: normal, firm - Labs Labs: Abnormal Lab Results - Last 24 Hours (Table) 04/11/24 04/12/24 Range/Units 10:30 03:31 WBC 11.4 H (3.8-10.6) k/uL RBC 3.78 L 3.38 L (3.80-5.40) m/uL Hgb 10.2 L 8.9 L (11.4-16.0) gm/dL Hct 31.5 L 28.2 L (34.0-46.0) % Neutrophils # 8.5 H (1.3-7.7) k/uL Assessment and Plan (1) Post-dates Current Visit: Yes Status: Acute Code(s): O48.0 - POST-TERM SNOMED Code(s): 23308047 (2) History of section Current Visit: Yes Status: Acute Code(s): Z98.891 - HISTORY OF UTERINE SCAR FROM PREVIOUS SURGERY SNOMED Code(s): 760203124 (3) S/P section Current Visit: No Status: Acute Code(s): Z98.891 - HISTORY OF UTERINE SCAR FROM PREVIOUS SURGERY SNOMED Code(s): 840521671 Plan: Patient is doing well postoperatively. Will continue routine postoperative care. Anticipate discharge home tomorrow.
[2024-04-12] MEDS: PRENATAL VIT-IRON-FOLIC ACID 1 EACH TABLET PO SCH (12:13)
[2024-04-13 09:44] VITALS: BP 112/70; PULSE 75; RESP 18; TEMP 97.8
--- NOTE | 2024-04-13 11:39 | P.DS ---
Providers Date of admission: 04/11/24 09:56 Expected date of discharge: 04/13/24 Attending physician: Tiarra Orellana Primary care physician: Stated None - Discharge Diagnosis(es) (1) Post-dates Current Visit: Yes Status: Acute (2) History of section Current Visit: Yes Status: Acute (3) S/P section Current Visit: No Status: Acute Hospital Course: 34-year-old 3 now para 2-0-1-2 that presented to labor and delivery on 04/11 at 40-6/7 weeks for scheduled repeat section. Patient has been receiving routine care which has been essentially uncomplicated. Patient was admitted to labor and delivery and repeat section was performed without difficulty. For full details on the please see the dictated operative report. Patient delivered a viable male at 1207, weight of 8 pounds 0 ounces, Apgars of 9 and 9 at 1 and 5 minutes respectively. Patient has done well postoperatively. On this postoperative day #2 she is ambulating and voiding without difficulty. She is tolerating a regular diet without nausea or vomiting. She states her pain is well-controlled. She denies concerns on this postoperative day #2 and would like discharge home. Patient Condition at Discharge: Good Plan - Discharge Summary Discharge Rx Participant: Yes New Discharge Prescriptions: No Action Vit No.180/Iron/Folic [ Plus Tablet] 1 tab PO DAILY MDD 1 tab Escitalopram [Lexapro] 10 mg PO HS Magnesium Glycinate 100 mg PO DAILY Discharge Medication List Vit No.180/Iron/Folic [ Plus Tablet] 1 tab PO DAILY MDD 1 tab 11/17/20 [History] Escitalopram [Lexapro] 10 mg PO HS 04/10/24 [History] Magnesium Glycinate 100 mg PO DAILY 04/10/24 [History] Follow up Appointment(s)/Referral(s): Tiarra Orellana DO [Doctor of Osteopathic Medicine] - 2 Weeks Patient Instructions/Handouts: (DC), (GEN) Activity/Diet/Wound Care/Special Instructions: No intercourse, tampons or tub baths. No driving for two weeks. Call with any fever, shakes or chills, with any pain not alleviated by over the counter meds, or with any questions or concerns. [id number] ibuprofen 600 mg or 3 tablets every 6 hours as needed for pain. Patient is to follow-up in 2 weeks for routine postoperative check. Discharge Disposition: HOME SELF-CARE
== END 2024-04-13 13:53 | disposition home or self-care (01) | DRG 788 ==
LOC: 4FBP 09:56
PROVIDERS: ADMIT Obstetrics & Gynecology Obstetrics; ATTEND Obstetrics & Gynecology Obstetrics
PROC: 10D00Z1 Extraction of Products of Conception, Low, Open Approach (ICD-10-PCS; principal; 2024-04-11 12:00)
DX: O34.211 Maternal care for low transverse scar from previous cesarean delivery (principal); O48.0 Post-term pregnancy; O99.344 Other mental disorders complicating childbirth; F41.9 Anxiety disorder, unspecified; F32.A Depression, unspecified; Z3A.40 40 weeks gestation of pregnancy; Z37.0 Single live birth
CPT/HCPCS: 85025; 86850; 86900; 86901